=== PATIENT | female | born 1945 | race Caucasian/White ===

== ENCOUNTER 2017-02-11 06:41 | Day surgery (SDC) | payer MEDICARE, OTHER ==
--- NOTE | ~2017-02-11 | EGD ---
EGD REPORT [facility] [address] [address] NAME: YULISSA RANDOLPH : [birth year] STATUS : REG [facility]#: [id number] AGE: 72 ADM/REG DATE : 02/11/17 MR#: [id number] REPORT SERV DATE: 02/11/17 DICTATED BY: ILYA CASTRO DATE: 02/11/17 REPORT STATUS : Draft TRANSCRIBED BY: [facility] DATE: 02/11/17 Endoscopy Center Patient Name: Yulissa Randolph Date of : 1945 Attending MD: ILYA CASTRO MD Procedure Date No Time: 02/11/2017 Procedure: Colonoscopy Indications: Rectal bleeding, Personal history of malignant neoplasm of the colon Referring MD: CITLALY YING BROOKE R. DANIEL Medicines: as per anesthesia Complications: No immediate complications. Procedure: Pre-Anesthesia Assessment: - ASA Grade Assessment: III - A patient with severe systemic disease. After I obtained informed consent, the scope was passed under direct vision. Throughout the procedure, the patient's blood pressure, pulse, and oxygen saturations were monitored continuously. The PCF [id number] was introduced through the anus and advanced to the ileocolonic anastomosis. The colonoscopy was performed without difficulty. The patient tolerated the procedure. The quality of the bowel preparation was adequate to identify polyps. Findings: The perianal and digital rectal examinations were normal. There was evidence of a prior end-to-side ileo-colonic anastomosis in the transverse colon. This was characterized by healthy appearing mucosa. A sessile polyp was found in the rectum. The polyp was 4 mm in size. The polyp was removed with a cold biopsy forceps. Resection and retrieval were complete. Internal hemorrhoids were found during endoscopy and were moderate. Impression: - End-to-side ileo-colonic anastomosis. - One 4 mm polyp in the rectum. Resected and retrieved. - Internal hemorrhoids. Recommendation: - Await pathology results. - Repeat colonoscopy for surveillance based on pathology results. Procedure Code(s): --- Professional --- 06026, Colonoscopy, flexible, proximal to splenic flexure; with biopsy, single or multiple EGD REPORT [facility] [address] [place]. [address] NAME: YULISSA RANDOLPH : [birth year] STATUS : REG [facility] PAT#: [id number] AGE: 72 ADM/REG DATE : 02/11/17 MR#: [id number] REPORT SERV DATE: 02/11/17 DICTATED BY: ILYA CASTRO. DATE: 02/11/17 REPORT STATUS : Draft TRANSCRIBED BY: [employer] DATE: 02/11/17 Diagnosis Code(s): --- Professional --- Z98.0, Intestinal bypass and anastomosis status K62.1, Rectal polyp K64.8, Other hemorrhoids K62.5, Hemorrhage of anus and rectum Z85.038, Personal history of other malignant neoplasm of large intestine CPT copyright 2013 [employer] [place] [employer]. All rights reserved. The codes documented in this report are preliminary and upon speeder tender review may be revised to meet current compliance requirements. ILYA CASTRO MD 02/11/2017 9:19 AM This report has been signed electronically. Number of Addenda: 0 Note Initiated On: 02/11/2017 8:53 AM Scope Withdrawal Time 0 hours 7 minutes 27 seconds [id number] [place] [id number]
[~2017-02-11 06:41] MED LIST: ASAB PO; CALTRA600D PO; CALTRAT600 PO; CARDCD180 PO; CARDCD300 PO; FOLBIC PO; IRON325 MG PO; MULTIPLE VIT PO; PRAVAC PO; RAN500 PO; VIT D3; VITC500 PO; VITE PO
== END 2017-02-11 23:59 | disposition home or self-care (01) ==
LOC: DMU 06:41
PROVIDERS: Internal Medicine Gastroenterology
PROC: 0DBP8ZZ Excision of Rectum, Via Natural or Artificial Opening Endoscopic (ICD-10-PCS; principal; 2017-02-11 08:30)
DX: K62.1 Rectal polyp (principal); K64.8 Other hemorrhoids; K62.5 Hemorrhage of anus and rectum; K76.6 Portal hypertension; D64.9 Anemia, unspecified; D69.6 Thrombocytopenia, unspecified; Z79.82 Long term (current) use of aspirin; Z85.038 Personal history of other malignant neoplasm of large intestine; Z98.0 Intestinal bypass and anastomosis status; Z79.899 Other long term (current) drug therapy
CPT/HCPCS: 88305